=== PATIENT | female | born 1990 | race Caucasian/White ===

== ENCOUNTER 2016-12-09 12:41 | Inpatient (IN) | payer OTHER ==
[~2016-12-09] VITALS: Ht 157.5 cm; Wt 124.9 kg
[~2016-12-09 12:41] MED LIST: ALBU8.5H3; PRED20TA
[2016-12-09 13:44] VITALS: Ht 157.5 cm; Wt 124.9 kg
[2016-12-09] MEDS ORDERED: LACTATED RINGER'S 1,000 ML IV SCH (13:55)
[2016-12-09 14:00] VITALS: BP 120/73; PULSE 90; RESP 18
[2016-12-09] MEDS ORDERED: MISOPROSTOL 200 MCG TAB PR PRN ×2 (14:00→23:30)
[2016-12-09] MEDS ORDERED: CARBOPROST 250 MCG INJ IM PRN ×2 (14:00→23:30)
[2016-12-09] MEDS ORDERED: OXYTOCIN 30 UNITS/LR 500 ML IV PRN ×2 (14:00→23:30)
[2016-12-09] MEDS ORDERED: OXYTOCIN 30 UNITS/LR 500 ML IV SCH (14:00)
[2016-12-09] MEDS ORDERED: METHYLERGONOVINE 0.2 MG INJ IM PRN ×2 (14:00→23:30)
[2016-12-09] MEDS ORDERED: CEFAZOLIN 2 GM/50 ML (PMX) 50 ML IV SCH (14:00)
[2016-12-09 14:33] LABS: ADD SCAN DIFF NO
[2016-12-09 14:37] LABS: BASOPHILS % 0.2 % (0.0-2.0); EOSINOPHILS # 0.1 10^3/ul (0.0-0.5); EOSINOPHILS % 1.4 % (0.0-7.0); HEMATOCRIT 34.9 % (37.0-47.0); HEMOGLOBIN 11.3 g/dl (12.0-16.0); LYMPHOCYTES # 0.9 10^3/ul (0.8-2.9); LYMPHOCYTES % 16.5 % (15.0-51.0); MEAN CORPUSCULAR HEMOGLOBIN 26.8 pg (29.0-33.0); MEAN CORPUSCULAR HGB CONC 32.4 g/dl (32.0-37.0); MEAN CORPUSCULAR VOLUME 82.7 fl (82.0-101.0); MONOCYTE # 0.5 10^3/ul (0.3-0.9); MONOCYTES % 9.2 % (0.0-11.0); PLATELET COUNT 203 10^3/UL (140-415); RED BLOOD COUNT 4.22 10^6/ul (4.20-5.40); WHITE BLOOD COUNT 5.6 10^3/ul (4.8-10.8)
[2016-12-09 14:48] LABS: INR 0.98
[2016-12-09 14:49] LABS: PARTIAL THROMBOPLASTIN TIME 28.5 Sec (25.0-35.0)
[2016-12-09] MEDS ORDERED: OXYTOCIN 30 UNITS/LR 500 ML IV ONE (18:36)
[2016-12-09] MEDS ORDERED: EPHEDrine SULFATE 50 MG/5 ML SYG ONE (18:36)
[2016-12-09] MEDS ORDERED: ONDANSETRON 4 MG INJ ONE (18:37)
[2016-12-09] MEDS ORDERED: METOCLOPRAMIDE 10 MG INJ ONE (18:37)
[2016-12-09] MEDS ORDERED: OXYTOCIN 10 UNIT INJ ONE (18:37)
[2016-12-09] MEDS ORDERED: morphine SULFATE/PF (10 MG/10 ML) INJ ONE (18:37)
[2016-12-09] MEDS ORDERED: morphine 2 MG INJ IV PRN ×2 (19:00)
[2016-12-09] MEDS ORDERED: EPHEDrine SULFATE 50 MG/5 ML SYG IV PRN (19:00)
[2016-12-09] MEDS ORDERED: ONDANSETRON 4 MG INJ IV PRN (19:00)
[2016-12-09] MEDS ORDERED: DIPHENHYDRAMINE 50 MG INJ IV PRN (19:00)
[2016-12-09] MEDS ORDERED: NALOXONE (0.4 MG/ML) INJ IV PRN (19:00)
[2016-12-09] MEDS ORDERED: morphine SULFATE/PF (10 MG/10 ML) INJ SPINAL ONE (19:00)
[2016-12-09] MEDS ORDERED: HYDROmorphONE 1 MG/ML SYG IV PRN ×2 (19:00)
[2016-12-09] MEDS ORDERED: MIDAZOLAM 1 MG/ML 2 ML INJ ONE (19:37)
--- NOTE | 2016-12-09 20:28 | HP ---
Date/Time of Note Date/Time of Note DATE: 12/09/16 TIME: 20:25 OB - History Hx of Present Free Text/Dictation admitted for repeat C/S + BTL Last Menstrual Period: Feb 08, 2016 Estimated Due Date: Dec 16, 2016 : 2 Para: 1 Care: Good Care Ultrasounds: Normal mid trimester US Obstetrical Complications: None Medical Complications: None Past Family/Social History * Past Medical, Surgical, Family and Obstetric Histories reviewed from chart. Blood Type: B+ Rubella: immune RPR/VDRL: Negative GBS Status: Negative HBsAG: Negative OB Admission Exam Vital Signs Vital Signs Vital Signs Date Time Temp Pulse Resp B/P Pulse Ox O2 Delivery O2 Flow Rate FiO2 12/09/16 14:00 97.7 90 18 120/73 Room Air Physical Exam HEENT: WNL Heart: Rhythm Normal Lungs: Clear, Equal Abdomen: WNL Extremities: Normal Reflexes: Normal Cervical Dilatation: None Effacement: 0% Station: -3 Membranes: Intact Heart Rate: 140's Accelerations: Accelerations Present Decelerations: No Decelerations Varibility: Marked Contractions on Admission: None Last 72 hours Lab Results CBC & BMP 12/09/16 14:17 OB Assessment/Plan Other Assessment: term gestation previous C/S X 1 desires sterilization Other plan: repeat C/S + BTL LAMONT JOYA MD Dec 09, 2016 20:28
--- NOTE | 2016-12-09 20:30 | OPR ---
Operative Report Planned Procedure Procedure date Dec 09, 2016 Procedure(s) repeat C/S + BTL Performed by: LAMONT JOYA MD Assisting provider: SHANNAN TRUJILLO MD Anesthesiologist: SHAAN KRISHNA MD Pre-procedure diagnosis term gestation previous C/S X 1 desires sterilization Anesthesia Type: spinal Procedure Description Under satisfactory anaesthesia a Pfannenstiel incision was made two fingerbreadth above and parallel to the symphysis of pubis around the previous scar and previous scar was removed Incision was extended laterally to the border of the Recti muscles on either sides. Incision was carried down with sharp and blunt dissection until fascia was reached. Anterior Recti muscle fascia was incised in mid portion and incision extended laterally to the border of skin incision. Fascia was mobilized from muscle superiorly and Recti muscles were from midline using sharp and blunt dissection. Peritoneum was visualized; Avoiding bowel and bladder it was incised . Incision was extended superiorly and inferiorly. Bladder blade was placed. Posterior peritoneum covering the lower segment of the uterus and lower segment of the uterus were incised.Low transverse uterine incision was made on lower segment of the uterus. Incision extended laterally to the border of Round Lig. on either sides and baby was delivered from OT. position . Amniotic fluid appeared clear. Cord blood was obtained and cord had 3 vessels . Placenta was delivered spontaneously and appeared intact and complete. Intrauterine cavity was rubbed with a laparotomy sponge. Uterine incision was closed in 2 layers using running stitches of No1 Monocryl. Hemostasis appeared secure. Ovaries and Fallopian tubes were within normal limits. Bilateral Tubal Ligation was performed by following procedure: R fallopian tube was raised in mid portion; a Martha clamp was placed below the fimbriae extending to proximal portion of the fallopian tube. Another clamp was placed parallel to the first and after incising the fallopian tube the stump was sutured using 0 Vicryl stitch. Hemostasis was secure . Same procedure was done on fallopian tube on the opposite side. Hemostasis appeared to be secure on ligated sites of either fallopian tubes. Announcing needle, lap sponge and instrument count to be correct abdomen was closed in layers as follows: Peritoneum and Recti muscles with running stitches of 20 Vicryl. Fascia with running stitch of No 1 PDS. Subcutaneous tissue with running stitches of 20 Chromic and skin was closed using lili. Patient tolerated the procedure well and was transferred to [facility] in good condition. Post-Procedure Post-procedure diagnosis S/P C/S + BTL Findings: Live Baby [], Apgars [] and [], weight [], position [], [] presentation []cord. Specimen removed: Yes Specimen description segments of R and L fallopian tubes Complications: None Pt Condition post procedure: stable Disposition: PACU Physician Certification I, the undersigned physician, hereby certify that I have discussed the procedure described in this consent form with this patient (or the patient's legal circulation representative), including: * The risk and benefits of the procedure; * Any adverse reactions that may reasonably be expected to occur; * Any alternative efficacious methods of treatment which may be medically viable ; * The potential problems that may occur during recuperation; * Potential for blood transfusion and associated risks/benefits; and * Any research or economic interest I may have regarding this treatment. I further certify that the patient/legally responsible person was encouraged to ask question and that all questions were answered. LAMONT JOYA MD Dec 09, 2016 20:30
[2016-12-09] MEDS: KETOROLAC 30 MG INJ IV PRN (20:43)
[2016-12-09 22:50] VITALS: BP 129/75; PULSE 66; RESP 20
[2016-12-09] MEDS ORDERED: NA PHOSPHATE/BIPHOS 133 ML ENEMA PR PRN (23:30)
[2016-12-09] MEDS ORDERED: LANOLIN 7 GM TUBE TOP PRN (23:30)
[2016-12-09] MEDS ORDERED: OXYCODONE/ACETAMINOPHEN (5/325) TAB PO PRN (23:30)
[2016-12-09] MEDS ORDERED: ACETAMINOPHEN/CODEINE #3 TAB PO PRN (23:30)
[2016-12-09] MEDS: GENTAMICIN 80 MG/NS (PMX) 50 ML IVPB SCH (23:51)
[2016-12-10] VITALS: BP 121/65; PULSE 61; RESP 18
[2016-12-10] MEDS: CLINDAMYCIN 900 MG/D5W (PMX) 50 ML IVPB SCH ×4 (00:57→18:33)
[2016-12-10] MEDS: LACTATED RINGER'S 1,000 ML IV SCH ×4 (01:55→23:14)
[2016-12-10 04:09] VITALS: BP 116/72; PULSE 81; RESP 18
[2016-12-10] MEDS: KETOROLAC 30 MG INJ IV PRN ×2 (05:15→15:59)
[2016-12-10 07:54] LABS: ADD SCAN DIFF NO
[2016-12-10 08:00] VITALS: BP 113/55; PULSE 85; RESP 18
[2016-12-10 08:09] LABS: BASOPHILS % 0.1 % (0.0-2.0); EOSINOPHILS # 0.1 10^3/ul (0.0-0.5); EOSINOPHILS % 0.9 % (0.0-7.0); HEMATOCRIT 30.9 % (37.0-47.0); HEMOGLOBIN 9.9 g/dl (12.0-16.0); LYMPHOCYTES # 1.4 10^3/ul (0.8-2.9); LYMPHOCYTES % 18.7 % (15.0-51.0); MEAN CORPUSCULAR VOLUME 84.4 fl (82.0-101.0); MEAN PLATELET VOLUME 12.3 fl (7.4-10.4); MONOCYTE # 0.5 10^3/ul (0.3-0.9); MONOCYTES % 6.9 % (0.0-11.0); NEUTROPHIL # 5.5 10^3/ul (1.6-7.5); NEUTROPHILS % 73.1 % (39.0-77.0); PLATELET COUNT 183 10^3/UL (140-415); RED BLOOD COUNT 3.66 10^6/ul (4.20-5.40); RED CELL DISTRIBUTION WIDTH 13.8 % (11.5-14.5); WHITE BLOOD COUNT 7.5 10^3/ul (4.8-10.8)
--- NOTE | 2016-12-10 09:43 | PN ---
Date/Time of Note Date/Time of Note DATE: 12/10/16 TIME: 09:42 Assessment/Plan VTE Prophylaxis VTE Prophylaxis Intervention: ambulation Lines/Catheters IV Catheter Type (from Nrsg): Peripheral IV Assessment/Plan Assessment/Plan S/P C/S POD # 1 will advance diet and ambulate and monitor vital signs Subjective 24 Hr Interval Summary No BM passing flatus Constitutional: BM, ambulates, flatus, improved, no complaints, urine output Pain Control: well controlled Exam/Review of Systems Vital Signs Vitals Vital Signs Date Time Temp Pulse Resp B/P Pulse Ox O2 Delivery O2 Flow Rate FiO2 12/10/16 05:02 95 21 12/10/16 04:09 97.5 81 18 116/72 Room Air Intake and Output 12/09/16 12/09/16 12/10/16 15:00 23:00 07:00 Intake Total 250 ml 1652 ml Output Total 795 ml 300 ml Balance -545 ml 1352 ml Exam Free Text/Dictation Abdomen: soft bs + incision: covered Constitutional: alert, oriented, well developed Psych: nl mood/affect, no complaints Head: atraumatic, normocephalic Eyes: EOMI, nl conjunctiva, nl lids, nl sclera ENMT: mucosa pink and moist, nl external ears & nose, nl lips & teeth, nl nasal mucosa & septum Neck: non-tender, supple Respiratory: clear to auscultation, normal air movement Cardiovascular: nl pulses, regular rate and rhythm Gastrointestinal: nl liver, spleen, non-tender, soft Drains none Musculoskeletal: nl extremities to inspection, nl gait and stance Extremities: normal pulses Neurological: 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
[2016-12-10] MEDS: SENNA/DOCUSATE NA (8.6MG/50MG) TAB PO SCH ×2 (10:10→21:42)
[2016-12-10] MEDS: GENTAMICIN 80 MG/NS (PMX) 50 ML IVPB SCH ×3 (10:11→23:39)
[2016-12-10] MEDS ORDERED: BISACODYL 10 MG SUPP PR ONE (10:30)
[2016-12-10 12:00] VITALS: BP 96/55; PULSE 85; RESP 19
[2016-12-10 16:00] VITALS: BP 99/58; PULSE 86; RESP 18
[2016-12-10 19:25] VITALS: BP 109/63; PULSE 84; RESP 19
[2016-12-10] MEDS: IBUPROFEN 800 MG TAB PO SCH (21:42)
[2016-12-11 03:50] VITALS: BP 114/59; PULSE 79; RESP 19
[2016-12-11] MEDS: IBUPROFEN 800 MG TAB PO SCH ×3 (05:37→21:41)
[2016-12-11] MEDS: GENTAMICIN 80 MG/NS (PMX) 50 ML IVPB SCH ×2 (07:58→15:25)
[2016-12-11 08:00] VITALS: BP 119/65; PULSE 80; RESP 18
[2016-12-11] MEDS: SENNA/DOCUSATE NA (8.6MG/50MG) TAB PO SCH ×2 (08:26→21:41)
[2016-12-11] MEDS: CLINDAMYCIN 300 MG CAP PO SCH ×3 (09:12→18:00)
[2016-12-11 16:00] VITALS: BP 111/62; PULSE 76; RESP 18
--- NOTE | 2016-12-11 16:54 | DS ---
Date/Time of Note Date/Time of Note home next day DATE: 12/11/16 TIME: 16:53 Obstetrical Discharge Record Final Diagnosis Final Diagnosis: Term delivered Other Final Diagnosis S/P C/S and BTL Vaginal Delivery Obstetrical Delivery: Bilateral Tubal Ligation Section Section: Repeat Condition on Discharge Physical Assessment Last Vitals: see nurses notes Voiding: Yes Bowel Movement: Yes Breast: Soft, non-tender, Filling Fundus: Firm Abdomen and Incision: abdomen: soft bs + incision: healing well Episiotomy: NA Calf Tenderness: No Patient Condition: Good LAMONT JOYA MD Dec 11, 2016 16:54
--- NOTE | 2016-12-11 16:56 | DS ---
Date/Time of Note Date/Time of Note DATE: 12/11/16 TIME: 16:54 Discharge Summary Admission/Discharge Info Admit Date/Time Dec 09, 2016 at 12:41 Discharge Date/Time 12/12/2016 Discharge Diagnosis S/P C/S + BTL Patient Condition: Good Procedures repeat C/S + BTL Hx of Present Illness 26 y/o female had repeat C/S + BTL Hospital Course uncomplicated Home Meds Reported Medications Prednisone (Prednisone) 20 Mg Tablet 07/14/10 Albuterol Sulfate* (Proair HFA*) 8.5 Gm Hfa.aer.ad 07/14/10 Follow-up Plan 2-3 days in clinic for staple removal Primary Care Provider Not On Staff Doctor LAMONT JOYA MD Dec 11, 2016 16:56
--- NOTE | 2016-12-11 16:57 | PD.PPDC ---
[employer] Discharge Instruction Provider Information Physician Information 26 y/o female had repeat C/S + BTL Diagnosis Final Diagnosis: S/P C/S + BTL Condition Patient Condition: Good Diet Diet: Resume Regular Diet Activity/Restrictions Activity: October Shower Restrictions: No Exercising No Lifting Nothing in the Vagina Return to Work or School: Feb 15, 2017 Wound/Drain Care Instructions Wound/Drain Care Instructions: Keep clean and dry Follow-up Follow-up with Physician: 2, 3, Day/Days (in clinic for staple removal ) Return to clinic for [employer] SUPER[employer]OR Instructions: Fever greater than 101 Chills OB Instructions: Breast Tenderness Depression Surgical Instructions: Incisional Drainage Incisional Redness LAMONT JOYA MD Dec 11, 2016 16:57
[2016-12-11] MEDS ORDERED: Oxycodone/Acetamin (5/325) PO (16:58)
[2016-12-11] MEDS ORDERED: IBUP800T25 PO (16:58)
[2016-12-11] MEDS: LACTATED RINGER'S 1,000 ML IV SCH ×2 (19:41→23:14)
[2016-12-11 19:50] VITALS: BP 112/67; PULSE 74; RESP 19
[2016-12-12] MEDS: CLINDAMYCIN 300 MG CAP PO SCH ×3 (00:49→13:56)
[2016-12-12 03:30] VITALS: BP 109/67; PULSE 76; RESP 18
[2016-12-12] MEDS: IBUPROFEN 800 MG TAB PO SCH ×2 (05:48→13:56)
[2016-12-12] MEDS: LACTATED RINGER'S 1,000 ML IV SCH (06:32)
[2016-12-12 08:20] VITALS: BP 111/63; PULSE 79; RESP 18
[2016-12-12] MEDS ORDERED: DIPHTH/TET/ACEL PERTUSS (ADULT) 0.5 ML VIAL IM* ONE (09:00)
[2016-12-12] MEDS: SENNA/DOCUSATE NA (8.6MG/50MG) TAB PO SCH (10:09)
== END 2016-12-12 14:45 | disposition home or self-care (01) | DRG 766 ==
LOC: L-D 12:41 → PP1 22:57
PROVIDERS: ADMIT Obstetrics & Gynecology; ATTEND Obstetrics & Gynecology
PROC: 0UB70ZZ Excision of Bilateral Fallopian Tubes, Open Approach (ICD-10-PCS; 2016-12-09)
PROC: 10D00Z1 Extraction of Products of Conception, Low, Open Approach (ICD-10-PCS; principal; 2016-12-09 15:30)
DX: O34.211 Maternal care for low transverse scar from previous cesarean delivery (principal); Z37.0 Single live birth; Z3A.00 Weeks of gestation of pregnancy not specified
CPT/HCPCS: 85025; 85610; 85730; 86592; 86703; 86850; 86900; 86901; 87340; 88302; 90715; 94760; 99464; J0690; J1580; J1885; J2250; J2274; J2405; J2590; J2765; J7120

== ENCOUNTER 2016-12-14 12:32 | Emergency (ER) | payer OTHER ==
[~2016-12-14] VITALS: Ht 157.5 cm; Wt 122.5 kg
[~2016-12-14 12:32] MED LIST changes: +IBUP800T25 PO; +Oxycodone/Acetamin (5/325) PO
[2016-12-14 12:53] VITALS: Ht 157.5 cm; Wt 122.5 kg
[2016-12-14] MEDS ORDERED: CEPH500C PO (13:41)
--- NOTE | 2016-12-14 13:43 | ERD ---
ER Documentation Chief Complaint Date/Time DATE: 12/14/16 TIME: 13:41 Chief Complaint Sent from for eval recheck post op infection HPI This 26-year-old female had a last week and she went to her doctor today for staple removal. The patient lili were removed and there is a small area of erythema to the skin that was noted and she was sent here for evaluation. 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 Patient says she has absolutely no pain no fever no drainage or other complaints. ROS All systems reviewed and are negative except as per history of present illness. Medications Home Meds Active Scripts Cephalexin* (Cephalexin*) 500 Mg Capsule, 500 MG PO Q8, #15 CAP Prov:PAMELLA HIDALGO DO 12/14/16 [Oxycodone/Acetamin (5/325)] 1 TAB TAB No Conflict Check, 2 TAB PO Q4H Y for PAIN LEVEL 6-10, #30 0 Refills Prov:LAMONT JOYA MD 12/11/16 Ibuprofen* (Ibuprofen*) 800 Mg Tablet, 800 MG PO Q8, #30 TAB 0 Refills Prov:LAMONT JOYA MD 12/11/16 Reported Medications Prednisone (Prednisone) 20 Mg Tablet 07/14/10 Albuterol Sulfate* (Proair HFA*) 8.5 Gm Hfa.aer.ad 07/14/10 Allergies Allergies: Coded Allergies: No Known Allergy (Verified , 12/09/16) PMhx/Soc History of Surgery: No (NO MEDICAL CONDITIONS OR SURGICAL HISTORY) Anesthesia Reaction: No Hx Neurological Disorder: No Hx Respiratory Disorders: Yes (ASTHMA) Hx Cardiac Disorders: No Hx Psychiatric Problems: No Hx Miscellaneous Medical Probl: No Hx Alcohol Use: No Hx Substance Use: No Hx Tobacco Use: No Smoking Status: Never smoker FmHx Family History: No coronary disease Physical Exam Vitals Vital Signs Date Time Temp Pulse Resp B/P Pulse Ox O2 Delivery O2 Flow Rate FiO2 12/14/16 12:53 98.7 75 20 126/65 98 Physical Exam Const: Well-developed, well-nourished Head: Atraumatic, normocephalic Eyes: Normal Conjunctiva, PERRLA, EOMI, normal sclera, no nystagmus ENT: Normal External Ears, Nose and Mouth, moist mucus membranes. Neck: Full range of motion. No meningismus, no lymphadenopathy. Resp: Clear to auscultation bilaterally, no wheezing, rhonchi, rales Cardio: Regular rate and rhythm, no murmurs, S1 S2 present Abd: Soft, non tender x 4, non distended. Normal bowel sounds, no guarding or rebound, no pulsitile abdominal masses or bruits Skin: No petechiae or rashes, no ecchymosis , no maculopapular rash, C- section wound is clean dry and intact there is a very small area of erythema at the right inferior portion of the wound with an approximate length of 1 inch. No induration no pus just mild cellulitis Back: No midline or flank tenderness Ext: No cyanosis, or edema, FROM x 4, normal inspection, neurovascularly intact x 4 Neur: Awake and alert, STR 5/5 x 4, sensation intact x 4, no focal findings, cerebellum intact Psych: Normal Mood and Affect Procedures/MDM We will cover with Keflex. She has a follow-up appointment in 3 days. Departure Diagnosis: Primary Impression: Cellulitis Site of cellulitis: trunk Site of cellulitis of trunk: abdominal wall Qualified Code: L03.311 - Cellulitis of abdominal wall Condition: Stable Patient Instructions: PAMELLA Licona DO Dec 14, 2016 13:43
== END 2016-12-14 14:15 | disposition home or self-care (01) ==
LOC: FTE 12:32
DX: L03.311 Cellulitis of abdominal wall (principal); J45.909 Unspecified asthma, uncomplicated
CPT/HCPCS: 99283